=== PATIENT | male | born 1955 | race Caucasian/White ===

== ENCOUNTER → 2022-04-24 | Outpatient (CLI) | payer OTHER ==
[~2022-04-24] MED LIST: ALBU8.5H INH; ECOT81TA5 PO; FLUT1BLS5 INH; INCR1INH INH; LISI20TA33 PO; OMEP-173 PO; OXYC1TAB23 PO; OXYC20TA2 PO; PRAV80TA2 PO
[2022-04-24 12:37] LABS: BASO # 0.1 10^3/uL (0.0-0.2); BASO % 0.5 % (0.0-1.0); EOS # 0.4 10^3/uL (0.0-0.5); EOS % 4.1 % (0.0-3.0); HEMATOCRIT 43.1 % (42.0-52.0); HEMOGLOBIN 14.7 g/dl (13.5-17.5); LYMPH # 2.3 10^3/uL (1.5-5.0); LYMPH % 24.3 % (24.0-44.0); MEAN CORPUSCULAR HEMOGLOBIN 30.4 pg (27.0-33.0); MEAN CORPUSCULAR HGB CONC 34.1 g/dl (32.0-36.5); MEAN CORPUSCULAR VOLUME 89.2 fl (80.0-96.0); MONO # 0.8 10^3/uL (0.0-0.8); MONO % 8.1 % (2.0-8.0); NEUTROPHILS # 5.9 10^3/uL (1.5-8.5); NEUTROPHILS % 62.7 % (36.0-66.0); PLATELET COUNT, AUTOMATED 265 10^3/uL (150-450); RED BLOOD COUNT 4.83 10^6/uL (4.30-6.10); WHITE BLOOD COUNT 9.4 10^3/uL (4.0-10.0)
[2022-04-24 13:07] LABS: ALBUMIN 4.5 G/DL (3.2-5.2); ALKALINE PHOSPHATASE 61 U/L (46-116); ALT/SGPT 16 U/L (7.0-40); AST/SGOT 21 U/L (<34); BILIRUBIN,TOTAL 0.5 MG/DL (0.3-1.2); BLOOD UREA NITROGEN 16 MG/DL (9-23); CALCIUM LEVEL 10.4 MG/DL (8.3-10.6); CARBON DIOXIDE LEVEL 27 MMOL/L (20-31); CHLORIDE LEVEL 101 MMOL/L (98-107); CREATININE FOR GFR 1.08 MG/DL (0.70-1.30); GLOMERULAR FILTRATION RATE > 60.0 (>49); GLUCOSE, FASTING 105 MG/DL (74-106); POTASSIUM SERUM 4.6 MMOL/L (3.5-5.1); PROSTATIC SPECIFIC AG MONITOR 2.79 NG/ML (< 4.00); SODIUM LEVEL 136 MMOL/L (136-145); TOTAL PROTEIN 7.8 G/DL (5.7-8.2)
== END ==
LOC: M ONCR 10:45
PROVIDERS: ATTEND General Practice
DX: C05.0 Malignant neoplasm of hard palate (principal); D11.9 Benign neoplasm of major salivary gland, unspecified; J44.9 Chronic obstructive pulmonary disease, unspecified; K21.9 Gastro-esophageal reflux disease without esophagitis; I10 Essential (primary) hypertension; I25.810 Atherosclerosis of coronary artery bypass graft(s) without angina pectoris; R91.8 Other nonspecific abnormal finding of lung field; Z77.090 Contact with and (suspected) exposure to asbestos; Z79.51 Long term (current) use of inhaled steroids; Z79.82 Long term (current) use of aspirin; Z79.899 Other long term (current) drug therapy; Z87.891 Personal history of nicotine dependence
CPT/HCPCS: 31575; 36415; 80053; 82378; 84153; 85025; 86301; 86304; G0463